=== PATIENT | male | born 1975 | race Hispanic/Latino ===

== ENCOUNTER 2024-04-13 18:44 | Emergency (ER) | payer BC ==
[~2024-04-13] VITALS: Ht 170.2 cm; Wt 103.0 kg
[2024-04-13] MEDS ORDERED: ACETAMINOPHEN 500 MG TAB PO ONE (20:10)
[2024-04-13] MEDS ORDERED: SULFAMETHOXAZOLE W/TRIMETHOPRI 1 COMBO TAB PO ONE (20:10)
[2024-04-13] MEDS ORDERED: IBUPROFEN 600 MG/TAB PO ONE (20:10)
[2024-04-13] MEDS ORDERED: BACTRIM DS1 TAB PO (20:12)
[2024-04-13 20:45] VITALS: BP 140/83
== END 2024-04-13 20:45 | disposition home or self-care (01) | DRG 603 ==
LOC: ED 18:44
DX: L03.116 Cellulitis of left lower limb (principal); R22.42 Localized swelling, mass and lump, left lower limb

== ENCOUNTER 2024-10-30 09:23 | Emergency (ER) | payer BC ==
[2024-10-30] VITALS (14 sets, daily range): BP systolic 117–152; BP diastolic 68–88
[~2024-10-30] VITALS: Ht 170.2 cm; Wt 106.8 kg
[~2024-10-30 09:23] MED LIST: BACTRIM DS1 TAB PO; DICYCLOMINE HCL20 MG PO
[2024-10-30] MEDS ORDERED: methylPREDNISolone SODIUM SUCC 125 MG/2 ML SDV IV ONE (09:55)
[2024-10-30] MEDS ORDERED: IPRATROPIUM-Albuterol 0.5MG-2.5MG/3 ML NEB ONE ×2 (09:55)
[2024-10-30 10:28] LABS: BASO% 0.5 % (0-3); HEMATOCRIT 40.2 % (39.0-50.0); HEMOGLOBIN 13.8 g/dl (14.0-18.0); IMMATURE GRANULOCYTES 0.2 % (0.0-5.0); LYMPH% 29.8 % (15-41); MEAN CELL VOLUME 91.6 fL CALC (80.0-100.0); MEAN CORPUSCULAR HGB 31.4 pG CALC (26.0-32.0); MEAN CORPUSCULAR HGB CONC 34.3 g/dL CAL (32.0-36.0); MONO% 7.6 % (2-13); NEUT# 3.53 thou/uL (1.82-7.42); NEUT% 59.9 % (42-76); RED BLOOD COUNT 4.39 mill/uL (4.70-6.10); RED CELL DISTRI WIDTH 11.9 % (11.5-15.5)
[2024-10-30 10:37] LABS: ALBUMIN 4.6 g/dL (3.2-5.0); ALKALINE PHOSPHATASE 77 u/l (38-126); ANION GAP 9 (6-22 (CALC)); BUN 16 mg/dL (9-20); BUN/CREATININE RATIO 16 (12-20 (CALC)); CARBON DIOXIDE 26 mmol/l (22-30); CHLORIDE 108 mmol/l (95-108); ESTIMATED GFR 92 ML/MIN (>=90 (CALC)); POTASSIUM 3.9 mmol/l (3.5-5.1); SGOT/AST 71 u/l (17-59); SODIUM 139 mmol/l (137-146)
[2024-10-30 10:49] LABS: BILIRUBIN, TOTAL 1.3 mg/dL (0.2-1.3)
[2024-10-30] MEDS ORDERED: PREDNISONE50 MG PO (12:44)
[2024-10-30] MEDS ORDERED: VENTOLIN HFA108 MCG PO (12:44)
== END 2024-10-30 13:08 | disposition home or self-care (01) | DRG 918 ==
LOC: ED 09:23
PROVIDERS: Family Medicine
DX: T54.3X1A Toxic effect of corrosive alkalis and alkali-like substances, accidental (unintentional), initial encounter (principal); R06.02 Shortness of breath